=== PATIENT | female | born 1955 | race Caucasian/White ===

== ENCOUNTER 2018-01-10 14:43 | Inpatient (IN) | payer OTHER ==
[~2018-01-10] VITALS: Ht 162.6 cm; Wt 75.4 kg
[~2018-01-10 14:43] MED LIST: ATIVAN1 MG PO; CELEXA40 MG PO; CITALOPRAM HBR20 MG PO; LATUDA80 MG PO; LITHIUM CARBON300 M1 PO; LITHIUM CARBON300 MG PO; LUNESTA3 MG PO; TOPIRAMATE25 MG PO; XANAX0.5 MG PO
[2018-01-10 15:43] LABS: HEMATOCRIT 36.2 % (36.0-46.0); HEMOGLOBIN 12.6 G/DL (11.9-15.5); MCH 29.3 PG (29.0-34.0); MCHC 34.8 G/DL (30.0-36.0); MCV 84.2 FL (83-99); PLATELET COUNT 221 K/uL (156-360); RBC DIS.WIDTH-CV 13.7 % (11.8-14.6); RBC DIS.WIDTH-SD 41.7 % (39-53); WHITE BLOOD COUNT 6.3 K/uL (4.1-10.2)
[2018-01-10 15:50] LABS: ALBUMIN 4.5 g/dL (3.2-4.8); CHLORIDE 110 mEq/L (99-109); POTASSIUM 3.8 mEq/L (3.7-5.4); SODIUM 140 mEq/L (136-147)
[2018-01-10 15:52] LABS: GLUCOSE 152 mg/dL (70-99)
[2018-01-10 15:53] LABS: TOTAL PROTEIN 7.5 g/dL (6.4-8.3)
[2018-01-10 15:54] LABS: TOTAL BILIRUBIN 0.5 mg/dL (0.0-1.0)
[2018-01-10 15:55] LABS: SERUM ETHYL ALCOHOL < 10 mg/dL
[2018-01-10 15:56] LABS: ALKALINE PHOSPHATASE 69 IU/L (3-129); CREATININE 0.9 mg/dL (0.6-1.3); GFR ESTIMATE (CALCULATED) > 59 mL/min/
[2018-01-10 15:57] LABS: UREA NITROGEN (BUN) 11 mg/dL (9-23)
[2018-01-10 15:58] LABS: AST (GOT) 19 IU/L (2-34)
[2018-01-10 15:59] LABS: ALT (GPT) 22 IU/L (3-49)
[2018-01-10 16:01] LABS: AMPHETAMINE NEGATIVE (500 ng/mL); BARBITURATES NEGATIVE (200 ng/mL); BENZODIAZEPINES NEGATIVE (150 ng/mL); BUPRENORPHINE NEGATIVE (10 ng/mL); COCAINE NEGATIVE (150 ng/mL); METHADONE NEGATIVE (200 ng/mL); METHAMPHETAMINE NEGATIVE (500 ng/mL); OPIATES (MORPHINE) NEGATIVE (100 ng/mL); OXYCODONE NEGATIVE (100 ng/mL); PHENCYCLIDINE NEGATIVE (25 ng/mL); PROPOXYPHENE NEGATIVE (300 ng/mL); THC CANNABINOIDS NEGATIVE (50 ng/mL); TRICYCLIC ANTIDEPRESSANTS NEGATIVE (300 ng/mL)
[2018-01-10] MEDS ORDERED: PROZAC20 MG PO (20:09)
[2018-01-10] MEDS ORDERED: TRAZODONE HCL50 MG PO (20:10)
[2018-01-10] MEDS ORDERED: METFORMIN HCL500 M1 PO (20:11)
[2018-01-10] MEDS ORDERED: AMLODIPINE BESYL5 MG PO (20:12)
[2018-01-10 20:16] VITALS: BP 177/84
[2018-01-10 22:26] VITALS: BP 177/84
[2018-01-11 07:49] VITALS: BP 151/74
[2018-01-11 15:26] VITALS: BP 163/82
[2018-01-12 07:34] VITALS: BP 136/62
[2018-01-12 15:21] VITALS: BP 179/88
[2018-01-13 07:56] VITALS: BP 139/65
[2018-01-13] MEDS ORDERED: DESYREL 150 MG150 MG PO (10:43)
[2018-01-13] MEDS ORDERED: VISTARIL25 MG PO (11:12)
== END 2018-01-13 14:12 | disposition home or self-care (01) | DRG 885 ==
LOC: EME 14:43 → 1WEST 18:20 → EDOF 18:20 → ENRESERV 20:04 → 1WEST 20:04
PROVIDERS: Emergency Medicine
DX: F33.2 Major depressive disorder, recurrent severe without psychotic features (principal); F31.81 Bipolar II disorder; R45.851 Suicidal ideations; E11.65 Type 2 diabetes mellitus with hyperglycemia; G47.00 Insomnia, unspecified; I10 Essential (primary) hypertension; Z21 Asymptomatic human immunodeficiency virus [HIV] infection status
CPT/HCPCS: 80053; 80178; 85027; 90839; 97150 GO; 97165 GO; 99281; 99285; G0480; Q0177

== ENCOUNTER 2018-02-06 16:47 | Emergency (ER) | payer OTHER ==
[~2018-02-06] VITALS: Ht 162.6 cm; Wt 74.6 kg
[~2018-02-06 16:47] MED LIST changes: +AMLODIPINE BESYL5 MG PO; +DESYREL 150 MG150 MG PO; +METFORMIN HCL500 M1 PO; +PROZAC20 MG PO; +TRAZODONE HCL50 MG PO; +VISTARIL25 MG PO
[2018-02-06 18:37] LABS: APPEARANCE SL.HAZY ((CLEAR)); BILIRUBIN NEGATIVE; BLOOD NEGATIVE; COLOR YELLOW ((YELLOW)); GLUCOSE (STRIP) NEGATIVE; KETONES NEGATIVE; LEUKOCYTES LARGE; NITRITE NEGATIVE; PROTEIN (STRIP) NEGATIVE; SPECIFIC GRAVITY 1.013 (1.000-1.030); UROBILINOGEN 0.2 MG/DL (0.2-1.0)
[2018-02-06 18:49] LABS: BACTERIA RARE /HPF; EPITHELIAL CELLS 1+ /HPF; HYALINE CASTS 0-5 /LPF; MUCUS TRACE /LPF; UCUL ADDED? YES; WHITE BLOOD CELLS TNTC /HPF (0-5)
[2018-02-06 18:53] LABS: MCHC 35.1 G/DL (30.0-36.0); MCV 85.3 FL (83-99); PLATELET COUNT 171 K/uL (156-360); RBC DIS.WIDTH-CV 13.4 % (11.8-14.6); RED BLOOD COUNT 4.34 M/uL (3.80-5.20); WHITE BLOOD COUNT 5.1 K/uL (4.1-10.2)
[2018-02-06 19:02] LABS: ALBUMIN 4.6 g/dL (3.2-4.8); CHLORIDE 110 mEq/L (99-109); POTASSIUM 4.4 mEq/L (3.7-5.4); SODIUM 138 mEq/L (136-147)
[2018-02-06 19:05] LABS: GLUCOSE 93 mg/dL (70-99); TOTAL PROTEIN 7.4 g/dL (6.4-8.3)
[2018-02-06 19:07] LABS: TOTAL BILIRUBIN 0.6 mg/dL (0.0-1.0)
[2018-02-06 19:08] LABS: ALKALINE PHOSPHATASE 58 IU/L (3-129); CREATININE 0.9 mg/dL (0.6-1.3); GFR ESTIMATE (CALCULATED) > 59 mL/min/
[2018-02-06 19:09] LABS: UREA NITROGEN (BUN) 14 mg/dL (9-23)
[2018-02-06 19:10] LABS: AST (GOT) 17 IU/L (2-34)
[2018-02-06 19:11] LABS: ALT (GPT) 21 IU/L (3-49)
[2018-02-06] MEDS ORDERED: NITROFURANTOIN100 MG PO (21:12)
[2018-02-06 21:42] LABS: THYROTROPIN (TSH) 4.9 MIU/L (0.4-5.5)
[2018-02-06 22:17] VITALS: BP 131/85
== END 2018-02-06 22:19 | disposition home or self-care (01) ==
LOC: EME 16:47
DX: R41.82 Altered mental status, unspecified (principal); N39.0 Urinary tract infection, site not specified; F03.90 Unspecified dementia, unspecified severity, without behavioral disturbance, psychotic disturbance, mood disturbance, and anxiety; R19.7 Diarrhea, unspecified; F31.9 Bipolar disorder, unspecified; B20 Human immunodeficiency virus [HIV] disease; I10 Essential (primary) hypertension; Z79.84 Long term (current) use of oral hypoglycemic drugs
CPT/HCPCS: 70450; 80053; 80178; 81003; 84443; 85027; 87086 GA; 99281; 99284

== ENCOUNTER 2018-02-26 12:55 | Observation (INO) | payer OTHER ==
[~2018-02-26] VITALS: Ht 162.6 cm; Wt 73.8 kg
[~2018-02-26 12:55] MED LIST changes: +NITROFURANTOIN100 MG PO
[2018-02-26 13:22] LABS: HEMATOCRIT 38.5 % (36.0-46.0); HEMOGLOBIN 13.4 G/DL (11.9-15.5); MCHC 34.8 G/DL (30.0-36.0); MCV 86.1 FL (83-99); PLATELET COUNT 164 K/uL (156-360); RBC DIS.WIDTH-CV 12.9 % (11.8-14.6); RBC DIS.WIDTH-SD 40.6 % (39-53); RED BLOOD COUNT 4.47 M/uL (3.80-5.20); WHITE BLOOD COUNT 3.4 K/uL (4.1-10.2)
[2018-02-26 13:33] LABS: CHLORIDE 110 mEq/L (99-109); POTASSIUM 4.3 mEq/L (3.7-5.4); SODIUM 139 mEq/L (136-147)
[2018-02-26 13:35] LABS: GLUCOSE 129 mg/dL (70-99)
[2018-02-26 13:39] LABS: GFR ESTIMATE (CALCULATED) > 59 mL/min/
[2018-02-26 13:40] LABS: UREA NITROGEN (BUN) 11 mg/dL (9-23)
[2018-02-26 17:58] LABS: CREATINE KINASE 18 IU/L (1-294); TOTAL CK 18 IU/L (1-294)
[2018-02-26 18:06] LABS: CK-MB 0.4 ng/mL (0.0-4.9); CKMB RELATIVE INDEX 2.2 (0.0-3.9)
[2018-02-26 18:25] LABS: ALBUMIN 4.5 g/dL (3.2-4.8)
[2018-02-26 18:28] LABS: TOTAL PROTEIN 7.4 g/dL (6.4-8.3)
[2018-02-26 18:30] LABS: TOTAL BILIRUBIN 0.6 mg/dL (0.0-1.0)
[2018-02-26 18:31] LABS: ALKALINE PHOSPHATASE 60 IU/L (3-129)
[2018-02-26 18:33] LABS: AST (GOT) 20 IU/L (2-34); DIRECT BILIRUBIN 0.2 mg/dL (0.0-0.3)
[2018-02-26 18:34] LABS: ALT (GPT) 17 IU/L (3-49)
[2018-02-26] MEDS ORDERED: VITAMIN D-32000 UNI2 PO (19:03)
[2018-02-26 21:01] LABS: HEMATOCRIT 35.8 % (36.0-46.0); HEMOGLOBIN 12.5 G/DL (11.9-15.5); MCHC 34.9 G/DL (30.0-36.0); MCV 86.1 FL (83-99); PLATELET COUNT 147 K/uL (156-360); RBC DIS.WIDTH-SD 40.3 % (39-53); RED BLOOD COUNT 4.16 M/uL (3.80-5.20); WHITE BLOOD COUNT 3.8 K/uL (4.1-10.2)
[2018-02-26 22:06] LABS: ERTH.SED.RATE 3 MM/HR (0-30)
[2018-02-26 23:05] LABS: HDL CHOLESTEROL 32 MG/DL (Desirable>=50); NON-HDL CHOLESTEROL 106 mg/dL (Desirable<160); TOTAL CHOLESTEROL 138 mg/dL (Desirable<200)
[2018-02-26 23:37] LABS: LDL CHOLESTEROL 87 mg/dL (Desirable<100); TRIGLYCERIDES 93 MG/DL (Normal: <150)
[2018-02-26 23:59] VITALS: BP 138/69
[2018-02-27 03:15] VITALS: BP 146/73
[2018-02-27 08:26] VITALS: BP 147/70
[2018-02-27 10:27] LABS: FOLIC ACID (FOLATE) > 22.0 NG/ML (5.0-22.0)
[2018-02-27 10:32] LABS: HEMOGLOBIN A1c (GLYCOHEMOGLOB) 5.4 % (Below 5.7)
[2018-02-27 12:25] VITALS: BP 130/60
[2018-02-27 13:11] LABS: HIV-1/2 AB/AG COMBO REACTIVE
[2018-02-27 16:14] VITALS: BP 158/79
[2018-02-27 20:02] VITALS: BP 166/79
[2018-02-27 23:48] VITALS: BP 187/91
[2018-02-28 00:30] VITALS: BP 142/68
[2018-02-28 03:43] VITALS: BP 165/89
[2018-02-28 07:24] VITALS: BP 180/91
[2018-02-28 11:02] VITALS: BP 161/92
[2018-02-28] MEDS ORDERED: ZYPREXA15 MG PO (13:02)
[2018-02-28 15:23] VITALS: BP 178/88
[2018-02-28 20:39] LABS: CD4/CD8 Ratio 0.52 (0.86-5.00)
== END 2018-02-28 17:28 | disposition home or self-care (01) ==
LOC: EME 12:55 → EDOF 20:08 → 4SOUTH 20:08 → EDOF 20:08 → ENRESERV 20:12 → 4SOUTH 22:36 → ENPENDDIS 02-28 → 4SOUTH 02-28 17:28
PROVIDERS: Emergency Medicine; Hospitalist
DX: R27.0 Ataxia, unspecified (principal); R25.1 Tremor, unspecified; B20 Human immunodeficiency virus [HIV] disease; F31.9 Bipolar disorder, unspecified; F41.9 Anxiety disorder, unspecified; N39.0 Urinary tract infection, site not specified; G47.00 Insomnia, unspecified; F19.11 Other psychoactive substance abuse, in remission; E11.9 Type 2 diabetes mellitus without complications; Z79.84 Long term (current) use of oral hypoglycemic drugs
CPT/HCPCS: 70551; 80048; 80061; 80076; 80178; 80306 90; 81003; 82550; 82553; 82607; 82746; 83036; 85027; 85651; 86355 90; 86359 90; 86360 90; 86701 90; 86702 90; 87177; 87206; 87329; 87389; 87493; 87506; 87536; 99281; 99285; G0378; G8978 GP CJ; G8979 GP CH; G8980 GP CI; G8987 GO CJ; G8988 GO CH; G8989 CJ; J2060; J7030

== ENCOUNTER → 2018-07-04 | Outpatient (CLI) | payer OTHER ==
[~2018-07-04] VITALS: Ht 162.6 cm; Wt 68.0 kg
[~2018-07-04] MED LIST changes: +VITAMIN D-32000 UNI2 PO; +ZYPREXA15 MG PO
== END | disposition home or self-care (01) ==
LOC: AMB 09:16
PROC: 0DBN8ZX Excision of Sigmoid Colon, Via Natural or Artificial Opening Endoscopic, Diagnostic (ICD-10-PCS; principal; 2018-07-04)
DX: Z12.11 Encounter for screening for malignant neoplasm of colon (principal); D12.5 Benign neoplasm of sigmoid colon; I10 Essential (primary) hypertension; B20 Human immunodeficiency virus [HIV] disease; B18.2 Chronic viral hepatitis C; E11.9 Type 2 diabetes mellitus without complications; Z87.891 Personal history of nicotine dependence
CPT/HCPCS: 88305; J2405